=== PATIENT | male | born 2000 | race Caucasian/White ===

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

== ENCOUNTER 2020-12-17 22:49 | Emergency (ER) | payer OTHER ==
[~2020-12-17] VITALS: Ht 185.4 cm; Wt 81.7 kg
[~2020-12-17 22:49] MED LIST: BENADRYL25 MG PO; PEPCID20 MG PO; PREDNISONE 10 M10 MG PO
[2020-12-18 01:58] VITALS: BP 108/60
== END 2020-12-18 01:55 | disposition home or self-care (01) ==
LOC: M.ERS 22:49
DX: S63.259A Unspecified dislocation of unspecified finger, initial encounter (principal); Z88.2 Allergy status to sulfonamides; Z88.1 Allergy status to other antibiotic agents; X58.XXXA Exposure to other specified factors, initial encounter; Y93.89 Activity, other specified; Y92.89 Other specified places as the place of occurrence of the external cause; Y99.8 Other external cause status